=== PATIENT | male | born 1960 | race Caucasian/White ===

== ENCOUNTER 2016-07-27 10:08 | Emergency (ER) | payer MEDICARE ==
[2016-07-27 10:22] VITALS: BP 116/74; PULSE 79; RESP 18; TEMP 98.2
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
--- NOTE | 2016-07-27 11:18 | XR ---
EXAMINATION TYPE: XR wrist complete LT DATE OF EXAM ORDERED: 07/27/2016 11:15 AM HISTORY: Pain. COMPARISON: None. FINDINGS: There is pseudocystic change within the lunate. No fracture or dislocation is seen. IMPRESSION: NO ACUTE OSSEOUS LESION.
--- NOTE | 2016-07-27 15:53 | XR ---
EXAMINATION TYPE: XR wrist complete LT DATE OF EXAM ORDERED: 07/27/2016 11:15 AM HISTORY: Pain. COMPARISON: None. FINDINGS: There is pseudocystic change within the lunate. No fracture or dislocation is seen. MTDD
--- NOTE | 2016-07-28 07:06 | XR ---
EXAMINATION TYPE: XR wrist complete LT DATE OF EXAM ORDERED: 07/27/16 11:15am HISTORY: Pain. COMPARISON: None FINDINGS: There is pseudocystic change within the lunate. No fracture or dislocation is seen. IMPRESSION: NO ACUTE OSSEOUS LESION. MTDD
--- NOTE | 2016-07-28 07:12 | XR ---
EXAMINATION TYPE: XR wrist complete LT DATE OF EXAM ORDERED: 07/27/16 11:15 am HISTORY: Pain COMPARISON: None FINDINGS: There is a pseudocystic change within the lunate. No fracture or dislocation is seen. IMPRESSION: NO ACUTE OSSEUS LESION. MTDD
== END 2016-07-27 11:34 | disposition home or self-care (01) ==
LOC: EC 10:08
DX: S63.501A Unspecified sprain of right wrist, initial encounter (principal); F17.200 Nicotine dependence, unspecified, uncomplicated; Z79.899 Other long term (current) drug therapy; X50.1XXA Overexertion from prolonged static or awkward postures, initial encounter
CPT/HCPCS: 99283